=== PATIENT | male | born 1945 | race Caucasian/White ===

== ENCOUNTER 2022-09-08 15:02 | Observation (INO) | payer MEDICARE, BC ==
[2022-09-08 17:10] LABS: CARBON DIOXIDE,CO2 33.3 mmol/L (21.0-32.0); POTASSIUM,K 4.4 mmol/L (3.5-5.1)
[2022-09-08] MEDS ORDERED: Sodium Chloride 0.9% 1,000 ML IV ONE (17:20)
[2022-09-08] MEDS ORDERED: Aspirin 81 MG Tab.Chew PO ONE (17:20)
[2022-09-08 19:53] LABS: CORONAVIRUS COVID-19 NAA NEGATIVE (NEGATIVE); INFLUENZA A NAA NEGATIVE (NEGATIVE); INFLUENZA B NAA NEGATIVE (NEGATIVE)
[2022-09-08] MEDS ORDERED: atorvaSTATin 20 MG Tab PO SCH (21:32)
[2022-09-08] MEDS: Metoprolol Tartrate 25 MG Tab PO SCH (22:00)
[2022-09-09 07:09] LABS: CARBON DIOXIDE,CO2 30.3 mmol/L (21.0-32.0); POTASSIUM,K 4.3 mmol/L (3.5-5.1)
[2022-09-09] MEDS ORDERED: Aspirin 81 MG Tab.Chew PO SCH (09:00)
[2022-09-09] MEDS ORDERED: buPROPion 150 MG Tab.ER PO SCH (09:00)
[2022-09-09] MEDS: Metoprolol Tartrate 25 MG Tab PO SCH (09:27)
[2022-09-09] MEDS ORDERED: atorvaSTATin 20 MG Tab PO SCH (21:00)
== END 2022-09-09 13:00 | disposition home or self-care (01) ==
LOC: MW.ED 15:02 → MW.MS 18:58
PROVIDERS: ADMIT Internal Medicine; ATTEND Internal Medicine
DX: R55 Syncope and collapse (principal); R77.8 Other specified abnormalities of plasma proteins; J44.9 Chronic obstructive pulmonary disease, unspecified; Z88.0 Allergy status to penicillin; Z79.82 Long term (current) use of aspirin; Z95.4 Presence of other heart-valve replacement; Z98.890 Other specified postprocedural states; Z79.899 Other long term (current) drug therapy; Z87.891 Personal history of nicotine dependence; Z20.822 Contact with and (suspected) exposure to COVID-19
CPT/HCPCS: 0240U; 36415; 70450; 71045; 80048; 80053; 84484; 85025; 93005; A9270; J7030